=== PATIENT | female | born 1980 | race Hispanic/Latino ===

== ENCOUNTER 2018-11-05 17:56 | Emergency (ER) | payer OTHER | END 2018-11-05 18:25 | disposition home or self-care (01) | LOC: EDH 17:56 | DX: M54.6 Pain in thoracic spine (principal); Z72.0 Tobacco use; Z98.890 Other specified postprocedural states; Y04.2XXA Assault by strike against or bumped into by another person, initial encounter; Y93.89 Activity, other specified; Y92.89 Other specified places as the place of occurrence of the external cause; Y99.8 Other external cause status ==